=== PATIENT | male | born 1935 | race Caucasian/White ===

== ENCOUNTER 2018-02-15 07:46 | Day surgery (SDC) | payer OTHER ==
--- OUTSIDE RECORDS SUMMARY | 2018-02-15 07:52 | XMS REPORT | Clinical Summary ---
:1935 Author Organization [facility] Address [address] [place] [id number] Care Team Providers Name Role Phone Asked, No Pcp Primary Care Provider Unavailable Allergies Not on File Current Medications Not on file Active Problems Not on file Encounters Date Type Specialty Care Team Description 05/26/2017 Hospital Encounter Matt Olivas Parkinson disease 05/26/2017 Hospital Encounter Matt Olivas Parkinson disease MD 05/26/2017 Ancillary Orders Matt Olivas Parkinson disease 05/12/2017 Transcribe Orders Matt Olivas Parkinson disease (Primary Dx) after 02/14/2017 Social History Tobacco Use Types Packs/Day Years Used Date Never Assessed Sex Assigned at Date Recorded Not on file Last Filed Vital Signs Not on file Plan of Treatment Health Maintenance Due Date Last Done Comments SHINGRIX VACCINE (#1) 01/22/1986 ZOSTER VACCINE 1996 PNEUMOCOCCAL POLYSACCHARIDE VACCINE AGE 65 AND OVER 01/22/2001 PNEUMOCOCCAL-13 01/22/2001 INFLUENZA VACCINE 11/11/2017 Procedures Procedure Name Priority Date/Time Associated Diagnosis Comments NM BRAIN SPECT W I Routine 05/26/2017 2:00 PM Parkinson disease Results for this 123 DATSCAN [employer] procedure are in the results section. after 02/14/2017 Results NM Brain Spect W I 123 Datscan (05/26/2017 2:00 PM) Narrative Performed At PROCEDURE:[facility]IN [facility] I [facility] INDICATION:Parkinson's disease. TECHNIQUE: The patient was pretreated with potassium iodide drops for thyroid protection and then injected with 4 mCi of I-123 DaTscan IV. Brain SPECT imaging was then performed. FINDINGS:Decreased uptake is noted in the posterior striata, left side worse than right. 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 [facility]-[id number] Procedure Note [facility], Radiology Results Incoming - 05/26/2017 2:06 PM [employer] PROCEDURE: NM BRAIN SPECT W I 123 DATSCAN INDICATION: Parkinson's disease. TECHNIQUE: The patient was pretreated with potassium iodide drops for thyroid protection and then injected with 4 mCi of I-123 DaTscan IV. Brain SPECT imaging was then performed. FINDINGS: Decreased uptake is noted in the posterior striata, left side worse than right. IMPRESSION: 1. 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 [facility]-[id number] Performing Organization Address City/State/Zipcode Phone Number [facility] [address] [place] [address] after 02/14/2017 Insurance Payer Benefit Plan / Group Subscriber ID Type Phone Address AETNA AETNA HMO,POS,EPO, MC/EC xxxxxxxx O MEDICARE MEDICARE PART A AND B xxxxxxxxxx Medicare [place], [place] Home: [address] [phone] [place], [place] [phone]
[2018-02-15] MEDS ORDERED: BUPIVACAINE 0.25% PF 10 ML VIAL ONE (08:14)
[2018-02-15] MEDS: CYCLOPENTOLATE 1% OPTH 2 ML ONE ×3 (08:15→08:25)
[2018-02-15] MEDS: PHENYLEPHRINE 10% OPTH 5ML ONE ×2 (08:15→08:20)
[2018-02-15] MEDS ORDERED: NA CHLORIDE 0.9% 500 ML ONE (08:15)
[2018-02-15] MEDS: LIDOCAINE 2% MPF 5 ML VIAL ONE ×3 (09:07→09:41)
[2018-02-15] MEDS: TETRACAINE HCL 0.5% 2ML OPTH ONE ×2 (09:07→09:40)
[2018-02-15] MEDS ORDERED: NS 0.9% VIAL 10 ML ONE (09:16)
[2018-02-15] MEDS ORDERED: EPINEPHRINE/PF 1 MG/ML AMP ONE ×2 (09:16→10:18)
[2018-02-15] MEDS ORDERED: BALANCED SALT IRRIG PLAIN 500 ML BTL IRR ONE (09:17)
[2018-02-15] MEDS ORDERED: MOXIFLOXACIN HCL 10 DROPS/ML **OR USE OPTH ONE (09:17)
[2018-02-15] MEDS ORDERED: DUOVISC 1 KIT OPTH ONE (09:17)
[2018-02-15] MEDS ORDERED: PROPOFOL 200 MG/20 ML VIAL IV ONE (09:38)
[2018-02-15] MEDS ORDERED: LIDOCAINE 2% MPF 5 ML VIAL ONE (09:38)
[2018-02-15] MEDS ORDERED: FENTANYL CITR 100 MCG/2 ML ONE (10:11)
--- NOTE | 2018-02-15 10:31 | P.BOP ---
Preoperative diagnosis: Nuclear sclerotic cataract OD Postoperative diagnosis: Same Primary procedure: Phacoemulsification with IOL OD Estimated blood loss: None Anesthesia: Local (Subtenon's infusion with anesthesia for cataract surgery) Complications: None Implants: ZCB00 +21.0 Transferred to: Other (Day surgery) Condition: Good
--- NOTE | 2018-02-15 21:45 | OP ---
Date of Procedure: 02/15/2018 Surgeon: Mary Rojas MD Anesthesiologist: 1. Bo Patel CRNA. 2. Bo Kuo CRNA. 3. Rob Sloan M.D. Preoperative Diagnosis: Nuclear sclerotic cataract, right eye. Operation Performed: Phacoemulsification with intraocular lens implant, right eye. Anesthesia: Per Cataract Surgery. Complications: None. Description Of Procedure: In day surgery, the patient was prepped with Betadine and draped. A conju nctival incision was made in the inferior nasal quadrant with Rosalind scissors. A sub-Tenon block c onsisting of a 1:1 mixture of 2% Xylocaine and 0.25% bupivacaine was placed through the conjunctival incision with a blunt cannula. A Honan balloon was placed over the eye and the patient was transferr ed to the operating room. In the operating room the patient was prepped and draped in the usual sterile fashion for ophthalmic surgery. A lid speculum was placed in the right eye. Two paracentesis sites were made superiorly an d inferiorly in the limbal cornea. Viscoat was placed in the anterior chamber and a crescent blade w as used to make a corneal groove and tunnel, and a keratome was used to enter the anterior chamber. Provisc was placed in the anterior chamber and a 360 degree capsulotomy was performed with a cystitom e. The lens was hydrodissected with BSS and rotated freely. The lens was removed with a stop and ch op technique. 6.34 phaco CDE was used to remove the lens. Residual cortex was removed with the irri gation and aspiration. Provisc was placed in the capsular bag. A ZCB00 +21.0 lens was placed in the capsular bag without complications. Irrigation and aspiration was used to remove residual viscoelas tic. The paracentesis sites were hydrated with BSS. The wound and paracentesis sites were inspected and found to be watertight. Vigamox 0.07 cc was placed intracamerally at the end of the procedure. The eye was irrigated with balanced salt solution. The eye was patched with a soft cotton patch and Christian metal shield. The patient was returned to day surgery in good condition. Comments: 1:5000 epinephrine was placed in the anterior chamber prior to Viscoat. Discharge Instructions: Mr. Nelson is discharged to home in good condition. He is to follow up with Dr. Rojas in the morning. PEDRO/NEERU Voice ID: [id number] Report ID: [id number]
== END 2018-02-15 11:12 | disposition home or self-care (01) ==
LOC: OR 07:46
PROVIDERS: ATTEND Ophthalmology Retina Specialist
PROC: 08RJ3JZ Replacement of Right Lens with Synthetic Substitute, Percutaneous Approach (ICD-10-PCS; principal; 2018-02-15 09:50)
DX: H25.11 Age-related nuclear cataract, right eye (principal); I10 Essential (primary) hypertension; G20 Parkinson's disease; K21.9 Gastro-esophageal reflux disease without esophagitis; E78.00 Pure hypercholesterolemia, unspecified; Z82.1 Family history of blindness and visual loss; Z83.3 Family history of diabetes mellitus
CPT/HCPCS: 66984; J0171 ×2; J2704; J3010